=== PATIENT | male | born 1965 | race Caucasian/White ===

== ENCOUNTER 2023-11-27 12:51 | Emergency (ER) | payer BC, SELFPAY ==
[2023-11-27 12:57] VITALS: BP 143/88
--- NOTE | 2023-11-27 13:39 | ED.MUSCINJ ---
HPI-Injury
General
Chief Complaint: Musculo-Skeletal Complaint
Source: patient
Exam Limitations: none
Time Seen by Provider: 11/27/23 13:38
Nursing documentation reviewed up to this point in time: agreed with
Travel History
Have you had any contact with someone who has COVID-19?: No
Do you have any symptoms of coronavirus? Fever > 100 degrees, chills, cough, shortness of breath, sore throat, loss of taste or smell, muscle aches, or headache?: No
History of Present Illness-Injury
Initial Injury comments:
58-year-old male states he tripped over a low wall at the [facility] a week ago and injured his left forearm and right hand, scraped right lower leg. Went to Urgent Care the next day and had negative x-rays. His pain persist so he wants
reevaluation.
Past History
Past History
ED Past Medical History: None
ED Past Surgical History: Urological
Social History
Tobacco: Non-smoker
Alcohol: None
Drug: None
Personal:
Living: with family
Employment: Employed
Family History
Family History: Other (Noncontributory)
Review of Systems
Review of Systems
Allergies reviewed?: Yes
All Other Systems: ROS reviewed and negative except as documented in HPI and ROS
Constitutional: Denies fever
Respiratory: Denies trouble breathing
Cardiac: Denies chest pain
ABD/GI: Denies abdominal pain or nausea
Musculoskeletal: Reports other (Pain medial aspect of right hand palm, left elbow area); Denies neck pain or back pain
Skin: Reports other (Bruising inner aspect of left arm)
Neurological: Denies weakness or numbness
Phy Exam
Physical Exam
Physical Exam:
GENERAL: No acute distress. A&Ox3.
CONSTITUTIONAL: Afebrile.
RESPIRATORY: Regular respirations, nonlabored, lungs clear.
CARDIOVASCULAR: Regular rate and rhythm, no murmurs, no rubs.
GI: Soft, nontender, normal BS
MUSCULOSKELETAL: Right lower extremity with mild tenderness, superficial clean abrasion mid shahid. Full range of motion. Ambulates well with normal gait. Right hand along the fifth metacarpal palmar surface is mildly tender to palpation, full
range of motion of all fingers and wrist, no discoloration, no significant swelling. Left arm tender just above the medial antecubital space, there is purplish red bruising from the arm. With mild swelling. No significant bony tenderness, full
range of motion, strength 5/5 bilaterally. No indication of biceps rupture. Distal neurovascular intact. Moves with ease. Well perfused.
SKIN: Warm, dry, pink
PSYCH: Normal mood and affect. Well kept, interactive and appropriate
NEUROLOGIC: Awake, alert and oriented. No focal neurological deficits
Injury Course
Orders/Labs/Results
Orders:
Orders
11/27/23 13:03
CR Hand - Right Min 3 Views Urgent
Comment:
Reason For Exam: fall one week ago. Swelling to outside of hand
Elbow, 3 view, Left [CR Elbow - Left Min 3 Views ] Urgent
Comment:
Reason For Exam: fall 1 week ago. Pain in elbow,bruising to forearm
MDM/Problems Addressed
Differential Diagnosis Includes:
contusion, sprain, fracture, biceps tendon rupture
MDM/Problems Addressed:
58-year-old male states he tripped over a low wall at the [facility] a week ago and injured his left forearm and right hand, scraped right lower leg. Went to Urgent Care the next day and had negative x-rays. His pain persist so he wants
reevaluation.
No sign of biceps rupture.
X-ray right hand initially read by this examiner: No bony abnormality.
X-ray left elbow initially read by this examiner: No bony abnormality
Exam is consistent with soft tissue injuries only, referred to orthopedics if not much improved within the next week.
*Critical Care Note
Total Time (30-74mins, 75-104mins- exclusive of procedures): Not Applicable
ED Attending Note
-
Portions of this chart may have been created with voice recognition software.� Occasional wrong word or��sound alike� substitutions may have occurred due to the inherent limitations of voice recognition software.
Discharge Plan
Departure
Patient Disposition: Home (Routine Discharge)
Date of Disposition: 11/27/23
Time of Disposition: 13:58
Patient with high blood pressure during this ER visit?: No
Condition: Good
Discharge Problem:
Contusion of left arm, Soft tissue injury of left elbow, Contusion of right hand, Abrasion of right lower leg
Instructions: Contusion (DC)
Prescriptions:
No Action
doxycycline hyclate 100 mg capsule
100 mg PO BID Qty: 13 0RF
prednisone 20 mg tablet
40 mg PO DAILY Qty: 8 0RF
clobetasol 0.05 % ointment
1 applic topical BID Qty: 15 0RF
Referrals:
Kerwin Tam I., DO [Family Provider] -
Noel Henderson MD [Active] - As needed
Activity Restrictions/Additional Instructions:
As we discussed, no bony abnormality on your xrays.
Warm compress to bruised areas may help the old blood reabsorb. no lifting over 5 lbs with the left arm until much better.
See the orthopedic doctor if not much improved in another 2 weeks.
Interventions
Interventions:
*General Assessment Last Done: 11/27/23 12:57
*Neglect/Abuse Screening Last Done: 11/27/23 12:57
*Nursing Disposition Last Done: 11/27/23 14:33
Discharge Date and Time
Discharge Date/Time: 11/27/23 14:34
== END 2023-11-27 14:34 | disposition home or self-care (01) ==
LOC: EMR 12:51
PROVIDERS: EMERGENCY PHYSICIAN Emergency Medicine; FAMILY PHYSICIAN Internal Medicine
DX: S40.022A Contusion of left upper arm, initial encounter (principal); S59.902A Unspecified injury of left elbow, initial encounter; S60.221A Contusion of right hand, initial encounter; S80.11XA Contusion of right lower leg, initial encounter; S80.811A Abrasion, right lower leg, initial encounter
CPT/HCPCS: 99283; 73080; 73130

== ENCOUNTER 2024-05-02 17:53 | Emergency (ER) | payer BC, SELFPAY ==
[2024-05-02 17:55] VITALS: BP 139/93
--- NOTE | 2024-05-02 18:07 | ED.GENMED ---
History of Present Illness
General
Chief Complaint: Insect Sting
Source: patient
Exam Limitations: none
Time Seen by Provider: 05/02/24 18:01
Nursing documentation reviewed up to this point in time: agreed with
History of Present Illness
History of Present Illness:
58-year-old male presenting to the emergency department today with concerns of multiple bee stings that occurred yesterday. He has noticed increasing redness swelling and itchiness to the areas that he was stung including his left arm his lower
extremities as well as his abdomen. He has been using Benadryl with intermittent relief. No trouble swallowing or breathing no airway compromise
Past History
Past History
ED Past Medical History: None
ED Past Surgical History: Urological
Social History
Tobacco: Non-smoker
Alcohol: None
Drug: None
Personal:
Living: with family
Employment: Employed
Family History
Family History: Other (Noncontributory)
Review of Systems
Review of Systems
Allergies reviewed?: Yes
All Other Systems: ROS reviewed and negative except as documented in HPI and ROS
Phy Exam
Physical Exam
Physical Exam:
GENERAL: Alert , in no apparent distress
EYE: pupils equal and reactive
NECK: Supple, no significant adenopathy.
ENT: o/p clr, mmm.
CARDIAC: Regular rate and rhythm .
LUNGS: Clear breath sounds bilaterally, no acute respiratory distress, no wheezes/rales/rhonchi
ABDOMEN: Soft, without focal tenderness, no r/g, no cvat
NEUROLOGICAL: Alert and oriented, no focal neuro deficits
SKIN: Warm and dry, skin intact.
MUSCULOSKELETAL: Isolated raised wheals left upper extremity right lower. No tenderness to palpation , well perfused.
PSYCH: Normal and appropriate interaction.
Course
Vital Signs
Initial and Last Documented VS:
Initial Vital Signs
Temp Pulse Resp BP Pulse Ox
98.1 F 72 16 139/93 98
05/02/24 17:55 05/02/24 17:55 05/02/24 17:55 05/02/24 17:55 05/02/24 17:55
Last Documented Vital Signs
Temp Pulse Resp BP Pulse Ox
98.1 F 72 16 139/93 98
05/02/24 17:55 05/02/24 17:55 05/02/24 17:55 05/02/24 17:55 05/02/24 17:55
MDM/Problems Addressed
MDM/Problems Addressed:
58-year-old male presenting to the emergency department today with concerns of things yesterday ongoing symptoms today. Has been taking Benadryl without relief. Patient without any emergent findings no signs of anaphylaxis. Patient was concerned
of significant swelling and itchiness concerning this was given steroid to help reduce inflammation sooner otherwise stable for discharge precautions given.
*Critical Care Note
Total Time (30-74mins, 75-104mins- exclusive of procedures): Not Applicable
ED Attending Note
-
Portions of this chart may have been created with voice recognition software.� Occasional wrong word or��sound alike� substitutions may have occurred due to the inherent limitations of voice recognition software.
Discharge Plan
Departure
Patient Disposition: Home (Routine Discharge)
Date of Disposition: 05/02/24
Time of Disposition: 18:09
Patient with high blood pressure during this ER visit?: No
Condition: Good
Covid-19: Not Applicable
Discharge Problem:
Bee sting
Instructions: Insect Bites and Stings (DC)
Prescriptions:
No Action
doxycycline hyclate 100 mg capsule
100 mg PO BID Qty: 13 0RF
prednisone 20 mg tablet
40 mg PO DAILY Qty: 8 0RF
clobetasol 0.05 % ointment
1 applic topical BID Qty: 15 0RF
Activity Restrictions/Additional Instructions:
You came to the emergency department today with concerns of multiple bee stings. Please continue using antihistamines and preparations return for any worsening, new or concerning symptoms.
Discharge Date and Time
Print Language: URUGUAYAN
[2024-05-02] MEDS: DECADRON 10 MG PO (18:12)
== END 2024-05-02 18:16 | disposition home or self-care (01) ==
LOC: EMR 17:53
PROVIDERS: EMERGENCY PHYSICIAN Emergency Medicine; FAMILY PHYSICIAN Internal Medicine
DX: T63.441A Toxic effect of venom of bees, accidental (unintentional), initial encounter (principal); R22.32 Localized swelling, mass and lump, left upper limb; R22.43 Localized swelling, mass and lump, lower limb, bilateral; R19.00 Intra-abdominal and pelvic swelling, mass and lump, unspecified site; Z88.1 Allergy status to other antibiotic agents
CPT/HCPCS: 99283

== ENCOUNTER → 2024-07-24 06:52 | Outpatient (REF) | payer BC, SELFPAY | LOC: MRI 3T 06:52 | PROVIDERS: ATTENDING PHYSICIAN Internal Medicine | DX: M67.922 Unspecified disorder of synovium and tendon, left upper arm (principal); S46.209A Unspecified injury of muscle, fascia and tendon of other parts of biceps, unspecified arm, initial encounter | CPT/HCPCS: 73218 ==

== ENCOUNTER → 2024-11-06 07:48 | Outpatient (REF) | payer BC, SELFPAY | LOC: MRI 3T 07:48 | PROVIDERS: ATTENDING PHYSICIAN Orthopaedic Surgery; FAMILY PHYSICIAN Internal Medicine | DX: S46.292A Other injury of muscle, fascia and tendon of other parts of biceps, left arm, initial encounter (principal); M25.222 Flail joint, left elbow | CPT/HCPCS: 73221 ==

== ENCOUNTER 2025-04-08 21:00 | Emergency (ER) | payer BC, SELFPAY ==
[2025-04-08 21:02] VITALS: BP 150/94
[2025-04-08 22:07] VITALS: BMI 28.3
--- NOTE | 2025-04-08 22:08 | EDRN ---
Pt was taking 300mg gabapentin daily for shingles for 10 days. Diagnosed with shingles about 3 weeks ago. Pt instructed to wean off it and started 100mg daily today because of hardness in his abdomen. Pt notes pain on L side returning. Pt notes
his abdomen 'has been like a rock' for the past week. No difference in pt's abdomen with decrease in gabapentin. No n/v, fever/chills/cough, diarrhea/constipation, urinary symptoms. Pt has constant pain in abdomen but adds the shingles are on his
abdomen also.
[2025-04-08 22:38] LABS: Urine Character Slightly Cloudy (Clear)
[2025-04-08 22:41] LABS: Urine Squamous Cell 0-2 /LPF (Few)
[2025-04-08 22:42] LABS: Urine Red Blood Cell 0-2 /HPF (0-2); Urine White Cell 0-2 /HPF (0-5)
[2025-04-08 23:55] VITALS: BP 142/94
[2025-04-09] MEDS: NSS 1000 IV (00:05)
[2025-04-09 00:21] LABS: ALT (SGPT) 26 U/L (0-50); AST (SGOT) 21 U/L (17-59); Albumin 3.9 g/dl (3.5-5.0); Alkaline Phosphatase 68 U/L (38-126); Blood Urea Nitrogen 27 mg/dl (9-20); Calcium 9.7 mg/dl (8.4-10.2); Carbon Dioxide 26 mmol/L (22-30); Chloride 110 mmol/L (98-107); Estimated Creatinine Clearance 93 ml/min; Glucose 119 mg/dl (70-99); Lipase 150 U/L (23-300); Potassium 3.6 mmol/L (3.5-5.1); Sodium 141 mmol/L (135-145); Total Protein 6.7 g/dl (6.3-8.2); eGFR > 60.00
[2025-04-09 01:14] LABS: Hematocrit 38.0 % (39.0-52.0); Hemoglobin 13.1 g/dL (13.0-18.0); Mean Corp Hgb Conc. 34.5 g/dL (33.0-37.0); Mean Corpuscular Volume 89.2 fL (80.0-94.0); Nucleated Red Blood Cells % 0 % (-); Platelet Count 183 10^3/uL (130-400); Red Cell Dist. Width 12.8 % (11.5-14.5)
[2025-04-09 02:03] VITALS: BP 148/96
--- NOTE | 2025-04-09 03:19 | ED.GENMED ---
History of Present Illness
General
Chief Complaint: Abdominal Symptoms
Source: patient
Exam Limitations: none
Time Seen by Provider: 04/08/25 23:03
History of Present Illness
History of Present Illness:
Note:
CHIEF COMPLAINT(S)
Abdominal bloating and pain, back pain, shingles.
HISTORY OF PRESENT ILLNESS
The patient is a 59-year-old male presenting with abdominal bloating and pain, back pain, and shingles. The shingles, diagnosed recently, is located from the umbilical region extending to the spine. The patient describes this area as burning and
mentions muscular pain in the lower back from prolonged recumbency. The abdominal bloating has persisted for a week, and the patient describes the area as hard. It was initially thought that the bloating could be related to 'gallbladder issues,' but
there is no definitive diagnosis.
The patient has been on antiviral medication, likely Acyclovir, and Gabapentin at a dose of 100 mg daily. The antiviral was started approximately three weeks ago when the rash was initially thought to be poison reed. The patient reports some relief
but continues to experience burning pain. Bowel movements are occurring once daily, though less frequently than prior to medication use. The patient experiences occasional nausea and cites an inability to tolerate prolonged lying due to lower back
pain. The area of shingles feels numb on the side.
The patients last episode of nausea was associated with a meal and the patient noted they have difficulty maintaining their usual diet.
PHYSICAL EXAM
General: Alert, no acute distress.
Skin: Warm, dry, with signs of shingles rash extending from the umbilical region to the back. On the left side
Head: Normocephalic, atraumatic.
Neck: Supple, trachea midline.
Eye, Ears, Nose, Mouth and Throat: Oral mucosa moist.
Cardiovascular: Normal peripheral perfusion, no edema.
Respiratory: Respirations are non-labored.
Gastrointestinal: Abdomen nondistended, tenderness on palpation in areas correlating with shingles rash and bloating sensation.
Back: Normal range of motion, tenderness noted in the lower back.
Musculoskeletal: Normal ROM, normal strength.
Neurological: Alert and oriented to person, place, time, and situation, no focal neurological deficit observed.
Psychiatric: Cooperative, appropriate mood & affect.
PROBLEM LIST
Acute Problems:
- Shingles with pain and numbness
- Abdominal bloating and tenderness
- Lower back pain
PLAN
- Order a computed tomography (CT) scan of the abdomen to evaluate the cause of bloating and pain.
- Administer intravenous fluids to address possible dehydration due to reduced oral intake.
- Consider stronger pain management options, but this will be contingent on the necessity of the patient driving home, as its a four-hour drive.
- Observation and reassessment following the CT scan results.
DIFFERENTIAL DIAGNOSIS
The Differential Diagnosis includes, in no particular order and is not limited to:
1. Herpes Zoster with postherpetic neuralgia
CARE-UPDATE
04/09/25 - 03:19
The abdominal scan reveals no acute findings. There is mild skin thickening in the left lower quadrant anterior abdominal wall, potentially indicating a zoster eruption. The gallbladder appears contracted, but there are no CT indications of
pancreatitis. The appendix is normal, with no bowel obstruction, free air, obstructive uropathy, concerning bone findings, diverticulitis, or colitis noted.
Disposition:
SUMMARY OF ENCOUNTER
The patient, a 59-year-old male, presented with abdominal bloating, pain, back pain, and shingles. After evaluating the patient and reviewing imaging results, it was determined that he is feeling better and ready for discharge. His condition has
improved with the current management. The patient has been advised to resume his shingles medications and adjust the dosage of gabapentin.
DISPOSITION
Discharge to home.
ASSESSMENT
The patients condition appears stable with improved symptoms. There are no acute findings on the CT scan concerning for serious complications.
PLAN
The patient will continue his current shingles medications and increase the dosage of gabapentin to two pills per day. He will follow up with his family doctor.
INDEPENDENT REVIEW OF LABS AND INTERPRETATION OF TESTS
My independent interpretation of the CT scan indicates no acute findings. There is mild skin thickening in the left lower quadrant anterior abdominal wall, potentially indicating a zoster eruption. No signs of pancreatitis, obstruction, or other
acute abnormalities.
PATIENT EDUCATION AND COUNSELING
The patient was informed about the CT scan results, and the treatment plan, and advised to follow up with his family doctor for continued care.
FOLLOW-UP INSTRUCTIONS
Please call the office immediately to schedule a follow-up visit with the family doctor.
MEDICATION RECONCILIATION
The patient will continue his current antiviral medication for shingles and increase gabapentin to two pills per day.
MEDICAL DECISION MAKING
- Number and Complexity of Problems Addressed: Chronic conditions affecting care include shingles with pain and numbness, abdominal bloating and tenderness, and lower back pain. The differential diagnosis includes herpes zoster with postherpetic
neuralgia, gallbladder disease, pancreatitis, gastrointestinal obstruction, muscular strain, gastrointestinal infection or colitis, kidney stones, constipation-induced discomfort, hepatic disease, and peptic ulcer disease.
- Data:
- Category 1:
- My independent interpretation of the CT scan indicates mild skin thickening possibly due to a zoster eruption, but no acute severe findings.
- Category 3:
- Escalation of care and potential admission were discussed, but the patient is stable for discharge with outpatient follow-up.
- Risk: Consideration of Admission/Observation: Escalation of care including admission/observation was considered given the complexity and risk of the patients presenting complaint, exam findings, and/or their underlying comorbidities. However,
ultimately I feel the patient is safe for outpatient management with close follow-up. Reasoning: Work-up reassuring, does not reveal any acute life/organ-threatening processes, patients symptoms well-controlled upon reevaluation, reexamination is
reassuring, vitals are stable, patient agreeable with discharge, reliable for follow-up.
DIAGNOSIS
- Herpes Zoster (B02.9)
- Abdominal Pain, Unspecified (R10.9)
- Low Back Pain (M54.5)
Past History
Past History
ED Past Medical History: None
ED Past Surgical History: Urological
Social History
Tobacco: Non-smoker
Alcohol: None
Drug: None
Personal:
Living: with family
Employment: Employed
Family History
Family History: Other (Noncontributory)
Phy Exam
Physical Exam
Physical Exam:
.
Course
Orders/Labs/Results
Orders:
Orders
04/08/25 21:04
Complete Blood Count/With Diff Urgent
Comprehensive Metabolic Panel Urgent
Lipase Urgent
04/08/25 22:29
Urinalysis Reflex To Culture Urgent
Date Specimen was Collected: 04/08/25
Time Specimen was Collected: 21:04
Urine Microscopic Reflex Cult Urgent
04/08/25 23:39
0.9% Sodium Chloride 1000 ml [Nss] 1,000 ml IV BOLUS
Morphine Sulfate 4 mg IV NOW STA
Ondansetron Injectable [Zofran] 4 mg IV NOW STA
04/08/25 23:45
Lactic Acid Q4H
Comment: CANCEL 2nd LACTIC ACID IF 1st LACTIC ACID IS LESS THAN 2
04/09/25 00:05
CT Abd/pelvis W Iv Cont Urgent
Reason For Exam: abd pain, distention
Abnormal Lab Results
04/08/25 04/09/25
22:29 00:01
RBC 4.26 L 10^6/uL
(4.70-6.10)
Hct 38.0 L %
(39.0-52.0)
MPV 11.2 H fL
(7.4-10.4)
Abs Immat Gran (auto) 0.1 H 10^3/uL
(0-0.05)
Absolute Monos (auto) 0.8 H 10^3/uL
(0.1-0.6)
Immature Gran % 1.1 H %
(0-0.5)
Monocytes % 11.8 H %
(1.7-9.3)
Chloride 110 H mmol/L
(98-107)
BUN 27 H mg/dl
(9-20)
Glucose 119 H mg/dl
(70-99)
Ur Occult Blood Reflex 1+ A
(Negative)
Urine Bacteria (Reflex) Few A
(Negative)
04/09/25 00:01
04/09/25 00:01
Vital Signs
Initial and Last Documented VS:
Initial Vital Signs
Temp Pulse Resp BP Pulse Ox
98.6 F 77 15 150/94 97
04/08/25 21:02 04/08/25 21:02 04/08/25 21:02 04/08/25 21:02 04/08/25 21:02
Last Documented Vital Signs
Temp Pulse Resp BP Pulse Ox
98.6 F 68 14 155/74 98
04/08/25 21:02 04/09/25 03:30 04/09/25 03:30 04/09/25 03:30 04/09/25 03:30
*Radiology
Radiology exam reviewed: radiology read reviewed
*Pulse Oximetry
SaO2: 98
Oxygen Mode of Delivery: Room air
Patient hypoxic: no
*Critical Care Note
Total Time (30-74mins, 75-104mins- exclusive of procedures): Not Applicable
Update Note
Update Note:
CT ABDOMEN PELVIS WITH CONTRAST
COMPARISON: 12/19/2016
IMPRESSION:
No acute findings in the abdomen.
Mild skin thickening along the left lower quadrant anterior abdominal wall may correspond to zoster eruption given history
Contracted gallbladder. No CT signs of pancreatitis.
No evidence of diverticulitis or colitis. Normal appendix. No bowel obstruction. No free air.
No obstructive uropathy.
No concerning bone finding.
Case results were faxed/electronically transmitted at 0238 EST. If there are any questions please feel free to contact me directly at [phone], ext [phone]. If you cannot reach me at this number, do not leave a voicemail. Please call [phone]
ext [phone] and ask for the next available radiologist.
Tc Melendez M.D.
This report has been electronically signed and verified by the Radiologist whose name is printed above.
ED Attending Note
-
Portions of this chart may have been created with voice recognition software.� Occasional wrong word or��sound alike� substitutions may have occurred due to the inherent limitations of voice recognition software.
Discharge Plan
Departure
Patient Disposition: Home (Routine Discharge)
Date of Disposition: 04/09/25
Time of Disposition: 03:21
Patient with high blood pressure during this ER visit?: Yes
Condition: Good
Discharge Problem:
Shingles, Abdominal pain
Instructions: Shingles, Abdominal Pain
Prescriptions:
No Action
gabapentin 100 mg Tablet
100 mg PO DAILY
Referrals:
Kerwin Tam I., [Family Provider, Internal Medicine]
Activity Restrictions/Additional Instructions:
Thank You for choosing [facility].
It was a pleasure meeting you and taking part in your care. We hope for your continued healing and wellness.
Please read discharge instructions in their entirety. However, they are for general education and may not describe your exact diagnosis at discharge. Information on your ER visit and medical conditions were discussed with you along with appropriate
follow up information...
If indicated, please take your medications as instructed and indicated on discharge paperwork.
Please schedule a follow up appointment as directed. Call to schedule an appointment
Please return to the emergency department with ANY change in, persisting, or worsening of symptoms. If any of your symptoms do not improve, or persist, or become more severe within 6-12 hours, please return to the emergency department for further
care.
Please return to the emergency department if you develop a headache, neck pain/stiffness, fever greater than 100.4F, chest pain, shortness of breath, persistent nausea, vomiting, slurred speech, difficulty walking, numbness/tingling, weakness, signs
of infection or any other symptoms that are worrisome to you.
If you have any questions or concerns please do not hesitate to call the Hospital at or E-mail me directly at [email or web address]
Interventions
Interventions:
*Risk Screen - Suicide Last Done: 04/08/25 21:02
*General Assessment Last Done: 04/08/25 21:02
*Neglect/Abuse Screening Last Done: 04/08/25 21:02
*ED- Fall Risk Assessment Last Done: 04/08/25 22:11
*Nursing Disposition Last Done: 04/09/25 03:35
TM-Skninm-Ozwigpendt Assessment Last Done: 04/08/25 22:13
Discharge Date and Time
Discharge Date/Time: 04/09/25 03:35
Print Language: [place]
[2025-04-09 03:30] VITALS: BP 155/74
== END 2025-04-09 03:35 | disposition home or self-care (01) ==
LOC: EMR 21:00
PROVIDERS: Student in an Organized Health Care Education/Training Program; EMERGENCY PHYSICIAN Student in an Organized Health Care Education/Training Program; FAMILY PHYSICIAN Internal Medicine
DX: R10.9 Unspecified abdominal pain (principal); M54.50 Low back pain, unspecified; R14.0 Abdominal distension (gaseous); R11.0 Nausea; B02.9 Zoster without complications; R03.0 Elevated blood-pressure reading, without diagnosis of hypertension; Z88.1 Allergy status to other antibiotic agents
CPT/HCPCS: 99284; 96360; 74177; 80053; 81003; 81015; 83605; 83690; 85025; Q9967